=== PATIENT | male | born 1950 | race Caucasian/White ===

== ENCOUNTER 2017-09-12 16:25 | Inpatient (IN) | payer MEDICARE, BC ==
[~2017-09-12] VITALS: Ht 170.2 cm; Wt 110.5 kg
[~2017-09-12 16:25] MED LIST: LISI40TA4 PO; METF850T2 PO; NAPR220C15 PO
[2017-09-12] MEDS ORDERED: iohexol 350 MG/ML 50ML vial IV ONE (19:56)
[2017-09-12 20:02] LABS: BASOPHILS % (AUTO) 0.4 % (0-1); EOSINOPHILS # (AUTO) 0.2 X10'3 (0-0.9); EOSINOPHILS % (AUTO) 1.8 % (0-6); HEMATOCRIT 45.7 % (42.0-52.0); HEMOGLOBIN 15.4 g/dl (14.0-17.9); LYMPHOCYTES # (AUTO) 2.8 X10'3 (1.1-4.8); LYMPHOCYTES % (AUTO) 22.6 % (21-51); MEAN CORPUSCULAR HEMOGLOBIN 29.5 PG (27.0-31.0); MEAN CORPUSCULAR HGB CONC 33.8 % (33.0-36.5); MEAN CORPUSCULAR VOLUME 87.2 FL (78-98); MEAN PLATELET VOLUME 7.6 FL (7.4-10.4); MONOCYTES # (AUTO) 0.8 X10'3 (0-0.9); MONOCYTES % (AUTO) 6.7 % (2-12); NEUTROPHILS # (AUTO) 8.3 X10'3 (1.8-7.7); NEUTROPHILS % (AUTO) 68.5 % (42-75); PLATELET COUNT 244 X10'3 (140-440); RED BLOOD COUNT 5.24 X10'6 (4.70-6.10); RED CELL DISTRIBUTION WIDTH 14.2 % (11.5-14.5); WHITE BLOOD COUNT 12.2 X10'3 (4.5-11.0)
[2017-09-12 20:09] LABS: INR 0.9 INR; PARTIAL THROMBOPLASTIN TIME 26 SECONDS (22-32); PROTHROMBIN TIME 9.8 SECONDS (9.0-12.0)
[2017-09-12 20:20] LABS: ALANINE AMINOTRANSFERASE 49 U/L (12-78); ALBUMIN 4.2 G/DL (3.4-5.0); ALBUMIN/GLOBULIN RATIO 1.1 (1.1-1.5); ALKALINE PHOSPHATASE 91 IU/L (46-116); ANION GAP 10 (8-16); ASPARTATE AMINO TRANSFERASE 30 U/L (10-37); BILIRUBIN,TOTAL 0.6 MG/DL (0.1-1.0); BLOOD UREA NITROGEN 17 MG/DL (7-18); CALCIUM 9.1 MG/DL (8.5-10.1); CHLORIDE 100 MMOL/L (99-107); CREATININE 0.81 MG/DL (0.60-1.10); GLUCOSE 184 MG/DL (70-104); POTASSIUM 3.7 MMOL/L (3.5-5.1); SODIUM 138 MMOL/L (135-145); eGFR > 90 ML/MIN
[2017-09-12] MEDS ORDERED: temazepam 15mg capsule PO PRN (21:00)
[2017-09-12] MEDS ORDERED: enoxaparin 100mg/ml syringe SUBCUT ONE (21:25)
[2017-09-12] MEDS ORDERED: normal saline 1000ml 1,000 ML IV SCH (22:42)
[2017-09-12] MEDS ORDERED: acetaminophen 650mg rectal suppository RC PRN (22:45)
[2017-09-12] MEDS ORDERED: HYDROcodone/acetaminophen 5mg/325mg tablet PO PRN (22:45)
[2017-09-12] MEDS ORDERED: LORazepam 0.5 MG tablet PO PRN (22:45)
[2017-09-12] MEDS ORDERED: diphenhydrAMINE 25mg capsule PO PRN (22:45)
[2017-09-12] MEDS ORDERED: HYDROmorphone 1 mg/ml syringe IV PRN ×2 (22:45)
[2017-09-12] MEDS ORDERED: metoclopramide 5 mg/ml inj IV PRN (22:45)
[2017-09-12] MEDS ORDERED: HYDROcodone/acetaminophen 10/325mg tab PO PRN (22:45)
[2017-09-12] MEDS ORDERED: magnesium hydroxide 30ml (MOM) UD suspension PO PRN (22:45)
[2017-09-12] MEDS ORDERED: ondansetron/PF 4mg/2ml inj IV PRN (22:45)
[2017-09-12] MEDS ORDERED: acetaminophen 325mg tablet PO PRN ×2 (22:45)
[2017-09-12] MEDS ORDERED: mag hydrox/Alum hydrox/simeth 30ml oral suspension PO PRN (22:45)
[2017-09-12 23:14] LABS: MAGNESIUM 1.7 MG/DL (1.5-2.4)
[2017-09-12] MEDS ORDERED: dextrose 50%-water 50ml dispensing syringe IV PRN ×2 (23:15)
[2017-09-12] MEDS ORDERED: glucagon, human recombinant 1mg kit SUBCUT PRN (23:15)
[2017-09-12] MEDS ORDERED: dextrose ORAL solution 15 GM/59 ML bottle PO PRN ×2 (23:15)
[2017-09-12] MEDS ORDERED: MESSAGE TO PHARMACY PO ONE (23:15)
[2017-09-12 23:30] VITALS: BP 179/88
[2017-09-12 23:45] LABS: HEMOGLOBIN A1C 8.3 % (4.5-6.2)
[2017-09-13 02:00] VITALS: BP 146/73
[2017-09-13 06:00] VITALS: BP 158/91
[2017-09-13 06:46] LABS: BASOPHILS % (AUTO) 0.2 % (0-1); EOSINOPHILS # (AUTO) 0.3 X10'3 (0-0.9); EOSINOPHILS % (AUTO) 2.9 % (0-6); HEMATOCRIT 41.5 % (42.0-52.0); HEMOGLOBIN 14.3 g/dl (14.0-17.9); LYMPHOCYTES # (AUTO) 2.7 X10'3 (1.1-4.8); LYMPHOCYTES % (AUTO) 26.6 % (21-51); MEAN CORPUSCULAR HGB CONC 34.4 % (33.0-36.5); MEAN CORPUSCULAR VOLUME 86.9 FL (78-98); MONOCYTES # (AUTO) 0.6 X10'3 (0-0.9); MONOCYTES % (AUTO) 6.2 % (2-12); NEUTROPHILS # (AUTO) 6.6 X10'3 (1.8-7.7); NEUTROPHILS % (AUTO) 64.1 % (42-75); PLATELET COUNT 210 X10'3 (140-440); RED BLOOD COUNT 4.77 X10'6 (4.70-6.10); RED CELL DISTRIBUTION WIDTH 13.6 % (11.5-14.5); WHITE BLOOD COUNT 10.4 X10'3 (4.5-11.0)
[2017-09-13] MEDS ORDERED: pantoprazole 40mg Tablet.DR PO SCH (07:30)
[2017-09-13] MEDS ORDERED: atorvastatin 10mg tablet PO SCH (08:00)
[2017-09-13] MEDS ORDERED: docusate sod 100mg capsule PO SCH (08:00)
[2017-09-13] MEDS ORDERED: nicotine 21mg patch - 24 hr TD SCH (08:00)
[2017-09-13] MEDS ORDERED: aspirin 81mg tab.chew PO SCH (08:30)
[2017-09-13] MEDS: insulin Lispro (HumaLOG) vial - multi-dose SQ SCH ×3 (09:20→19:30)
[2017-09-13] MEDS ORDERED: enoxaparin 60mg/0.6ml syringe SUBCUT SCH (11:00)
[2017-09-13 12:06] VITALS: BP 152/80
[2017-09-13] MEDS ORDERED: HYDR25TA4 PO (13:39)
[2017-09-13 14:58] VITALS: BP 153/89
[2017-09-13 18:40] VITALS: BP 131/97
[2017-09-13] MEDS ORDERED: ATOR10TA PO (19:53)
[2017-09-13] MEDS ORDERED: SITA50TA PO (19:53)
[2017-09-13] MEDS ORDERED: ASPI-1265 PO (19:53)
[2017-09-13] MEDS ORDERED: Insulin Detemir pen SQ SCH (21:00)
== END 2017-09-13 20:40 | disposition home or self-care (01) | DRG 123 ==
LOC: ER 16:26 → ED HOLD 22:42 → ORTHO 4S 23:35
PROVIDERS: ADMIT Family Medicine; ATTEND Family Medicine
PROC: B3251ZZ Computerized Tomography (CT Scan) of Bilateral Common Carotid Arteries using Low Osmolar Contrast (ICD-10-PCS; principal; 2017-09-12)
PROC: B32G1ZZ Computerized Tomography (CT Scan) of Bilateral Vertebral Arteries using Low Osmolar Contrast (ICD-10-PCS; 2017-09-12)
PROC: B3281ZZ Computerized Tomography (CT Scan) of Bilateral Internal Carotid Arteries using Low Osmolar Contrast (ICD-10-PCS; 2017-09-12)
DX: H49.02 Third [oculomotor] nerve palsy, left eye (principal); E11.65 Type 2 diabetes mellitus with hyperglycemia; E66.01 Morbid (severe) obesity due to excess calories; G89.29 Other chronic pain; I10 Essential (primary) hypertension; F17.210 Nicotine dependence, cigarettes, uncomplicated; Z79.82 Long term (current) use of aspirin; Z79.84 Long term (current) use of oral hypoglycemic drugs; Z79.899 Other long term (current) drug therapy; Z68.38 Body mass index [BMI] 38.0-38.9, adult
CPT/HCPCS: 36415; 70450; 70496; 70498; 70551; 80053; 82948; 83036; 83735; 83880; 84443; 85025; 85610; 85730; 87070; 93306; 96372; 99285; J1650; J7030; Q9967